=== PATIENT | female | born 1980 | race Caucasian/White ===

== ENCOUNTER 2022-06-03 10:23 | Outpatient (CLI) | payer OTHER, SELFPAY | END 2022-06-03 10:24 | disposition home or self-care (01) | PROVIDERS: PCP Physician Assistant Medical; Visit Provider Physician Assistant Medical | DX: E03.9 Hypothyroidism, unspecified (principal); E66.9 Obesity, unspecified; K58.9 Irritable bowel syndrome, unspecified; R53.83 Other fatigue | CPT/HCPCS: 82533; 82670; 84443 ==

== ENCOUNTER 2022-08-17 13:40 | Outpatient (CLI) | payer OTHER, SELFPAY ==
[2022-08-17 22:23] LABS: Iron* 67 ug/dL (37-170)
[2022-08-17 22:30] LABS: Free T4 Free Thyroxine* 1.35 ng/dL (0.70-1.85)
[2022-08-17 22:33] LABS: Percent Iron Saturation 15 % (20-50); Total Iron Binding Capacity 450 ug/dL (265-497)
[2022-08-19 19:48] LABS: Free T3 2.5 pg/mL (2.5-4.3)
[2022-08-19 19:57] LABS: TSH Receptor Antibody < 0.80 IU/L (<=1.75)
== END 2022-08-17 13:41 | disposition home or self-care (01) ==
PROVIDERS: PCP Physician Assistant Medical; Visit Provider Physician Assistant Medical
DX: E03.9 Hypothyroidism, unspecified (principal)
CPT/HCPCS: 83520; 83540; 83550; 84439; 84443; 84481

== ENCOUNTER 2022-12-21 15:15 | Outpatient (CLI) | payer OTHER, SELFPAY | END 2022-12-21 15:16 | disposition home or self-care (01) | LOC: LKVREF 16:14 | PROVIDERS: PCP Physician Assistant Medical; Visit Provider Physician Assistant Medical | DX: E03.9 Hypothyroidism, unspecified (principal) | CPT/HCPCS: 84443 ==

== ENCOUNTER 2023-09-27 07:52 | Outpatient (CLI) | payer OTHER, SELFPAY ==
--- OUTSIDE RECORDS SUMMARY | 2023-09-30 11:31 | XMS_ITS | Patient Health Record ---
Author Name Unknown Organization [facility] Address [address] [place], [place] [address] Care Team Providers Care Chamber Worker Name Role Phone FedericaJesica skinner Primary Care Provider Avi Botello Unavailable [phone] ALLERGIES Allergen (clinical drug ingredient) Drug/Non Drug Allergy documented on EMR Reaction Allergy Type Onset Date Status sulfamethoxazole / trimethoprim Bactrim DS Unknown Drug Allergy Active Substance with sulfonamide structure and antibacterial mechanism of action (substance) Sulfa Antibiotics Unknown Drug Allergy A ctive RESULTS Component Value Reference Range Notes TESTOSTERONE, TOTAL, LC/MS/M S Reviewed date:12/22/2022 09:31:28 AM Interpretation: Performing Lab:[facility] [address], [address] Center[facility]magpyulxmMT[address] Liam Law MD Notes/Report: 0 TESTOSTERONE, TOTAL, MS 120 2-45 ng/dL For additional information, please refer to https://education.nanoMR.com/faq/TotalTestosteroneLCMS MS (This link is being provided for informational/educational purposes only.) (Note) This test was developed and its analytical performance characteristics have been determined by [employer] It has not been cleared or approved by the FDA. This assay has been validated pursuant to the CLIA regulations and is used for clinical purposes. [facility] [address] [address],[address] [facility] [address] Liam Law MD REASON FOR REFERRAL No Information MEDICATIONS Medication SIG (Take, Route, Frequency, Duration) Notes Start Date End Date Status FLUoxetine HCl Not-T aking Wegovy Not-Taking Testosterone 5mg/day transdermal cream Active Losartan Potassium A ctive hydroCHLOROthiazide Active Levothyroxine Sodium Active Vyvanse Active Progesterone 100 MG TAKE 1 CAPSULE BY MOUTH EVERY DAY AT BEDTIME 30 for 90 Active Lisinopril Active SOCIAL HISTORY Tobacco Use: Social History Observation Description Date Details (start date - stop date) Never Smoker NA - NA Sex Assigned At : Social History Observation Description Sex Assigned At Unknown Tobacco Use/Smoking Question Answer Notes Are you a nonsmoker Alcohol Screen (Audit-C) Question Answer Notes Did you have a drink containing alcohol in the p ast year? No Points 0 Interpretation Negative PROBLEMS Problem Type ICD Code Onset Dates Problem Status W/U Status Risk SNOMED Code Notes Problem Other specified hypothyroidism (E03.8) Active confirmed 652683681 Problem Autoimmune thyroiditis (E06.3) Active confirmed 50198097 Problem Menopausal and female climacteric states (N95.1) Active confirmed Menopause (325448185) Problem Sleep difficulties (G47.9) Active confirmed 337032294 Problem Perimenopausal disorder (N95.9) Active confirmed 018948715 Problem 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 957604612 Encounters Encounter Location Date Provider Diagnosis [facility] [address] [place] [address] 11/12/2022 Avi Castle Menopausal and femal e climacteric states N95.1 [facility] [address] [place] [address] 12/16/2022 Avi Castle Menopausal and femal e climacteric states N95.1 [facility] [address] [place] [address] 11/19/2022 Avi Castle Perimenopausal disorder N95.9 ; Female climacteric N95.1 ; Fatigue R53.83 ; Other specified hypothyroidism E03.8 and Sleep difficulties G47.9 [facility] [address] [place] [address] 12/24/2022 Avi Castle Perimenopausal disorder N95.9 ; Female climacteric N95.1 ; Fatigue R53.83 and Other specified hypothyroidism E03.8 [facility] [address] [place] [address] 10/26/2022 Avi Castle [facility] [address] [place], [place] [address] 11/12/2022 Avi Castle ASSESSMENTS Encounter Date Diagnosis Assessment Notes Treatment Notes Treatment Clinical Notes 11/19/2022 Perimenopausal disorder (ICD-10 - N95.9) 11/19/2022 Female climacteric (ICD-10 - N95.1) 12/24/2022 Perimenopausal disorder (ICD-10 - N95.9) HRT labs reviewed. Optimal testosterone level on transdermal testotserone cream. Reporting improvement in baseline symptoms without concerns Plan to continue transdermal testosterone cream 5mg/day. Will change concentration to 1 click (0.25mg/day) so she doesn't have to use as much cream for 3 month supply with 1 refill to [facility] Repeat total testosterone lab in 6 months with Televisit 1 week after Due for updated mammogram in 03/202312/24/2022 Female climacteric (ICD-10 - N95.1) 12/24/2022 Fatigue (ICD-10 - R53.83) 12/16/2022 Menopausal and female climacteric states (ICD-10 - N95.1) 11/19/2022 Fatigue (ICD-10 - R53.83) 11/12/2022 Menopausal and female climacteric states (ICD-10 - N95.1) 11/19/2022 Other specified hypothyroidism (ICD-10 - E03.8) 12/24/2022 Other specified hypothyroidism (ICD-10 - E03.8) 11/19/2022 Sleep difficulties (ICD-10 - G47.9) 11/19/2022 Other HRT labs ordered. Plan to check total testosterone in 4 weeks with televisit in 5 weeks since she has not been using therapy consistently HRT without concerns at this time. Desires to continue on current therapies without dose adjustments 12 min. spent reviewing previous notes, lab results, therapies, answering questions/concerns, and discussing ongiong therapy options, along with time spent documenting today's visit note. 12/24/2022 Other This visit was conducted with the use of audio and video telecommunications system that permits real time communication between the patient and provider. Patient consent for virtual visit was obtained. Originating site: [facility] location Distant site: pt home Start time: 948 Stop time: 953 PLAN OF TREATMENT Pending Test Test Name Order Date TESTOSTERONE, TOTAL, LC/MS/MS 11/12/2022 Insurance Providers Payer Name Payer Address Payer Phone Subscriber Number Group Number Insured Name Patient Relationship to Insured Coverage Start Date Coverage End Date Preferred One HMO [address] [address] [place] [id number] Daily Rodriguez Self - patient is the insured 2 [facility] [address] [place] [id number] RawPatti nevareza Self - patient is the insured MEDICAL (GENERAL) HISTORY Medical History History ICD Code high blood pressure ADD Javier/ Hypothyroid sleep apnea Surgical History Surgery Date(Month/Year) gallbladder kidney stone removal s
== END 2023-09-27 07:53 | disposition home or self-care (01) ==
LOC: NFLDREF 09-30 11:27
PROVIDERS: PCP Physician Assistant Medical; Referring Provider Physician Assistant Medical; Visit Provider Physician Assistant Medical
DX: I10 Essential (primary) hypertension (principal)
CPT/HCPCS: 80053; 84443

== ENCOUNTER 2023-11-10 16:21 | Outpatient (CLI) | payer OTHER, SELFPAY | END 2023-11-10 16:22 | disposition home or self-care (01) | LOC: LKVREF 16:22 | PROVIDERS: PCP Physician Assistant Medical; Visit Provider Physician Assistant Medical | DX: Z01.818 Encounter for other preprocedural examination (principal); E03.9 Hypothyroidism, unspecified; I10 Essential (primary) hypertension; D64.9 Anemia, unspecified; E66.9 Obesity, unspecified; R74.01 Elevation of levels of liver transaminase levels | CPT/HCPCS: 84439; 84443 ==

== ENCOUNTER 2023-11-11 14:55 | Outpatient (CLI) | payer OTHER, SELFPAY ==
--- NOTE | 2023-11-11 16:00 | CRLHL7_ITS ---
For Patients: As a result of the Cures Act, medical imaging exams and procedure reports are released immediately into your electronic medical record. You may view this report before your referring provider. If you have questions, please contact your health care provider. INDICATION: LOCALIZED SWELLING, MASS, AND LUMP COMPARISON: 03/03/2022 TECHNIQUE: Turcios scale and color Doppler images were acquired of the thyroid gland. FINDINGS: The thyroid gland demonstrates diffusely heterogeneous echogenicity and has a lobular outer contour. The right lobe measures 8.4 x 3.2 x 4.8 cm and the left lobe measures 10.7 x 3.8 x 4.0 cm in size. The isthmus measures 15 millimeters. There are no suspicious masses or nodules. The color Doppler images demonstrate increased vascularity. There is no evidence of cervical lymphadenopathy or parathyroid mass. IMPRESSION: Diffusely enlarged, hypervascular and heterogeneous thyroid gland without dominant or suspicious nodule. Dictated by Naif Dennis MD @ 11/12/2023 10:24:09 AM (Electronically Signed)
== END 2023-11-11 14:56 | disposition home or self-care (01) ==
LOC: US 14:56
PROVIDERS: PCP Physician Assistant Medical; Visit Provider Otolaryngology
DX: R22.1 Localized swelling, mass and lump, neck (principal); E04.9 Nontoxic goiter, unspecified
CPT/HCPCS: 76536

== ENCOUNTER 2024-03-09 12:19 | Outpatient (CLI) | payer OTHER, SELFPAY ==
--- OUTSIDE RECORDS SUMMARY | 2024-03-09 12:25 | XMS_ITS | Clinical Summary ---
Author Name Unknown Organization [employer] [facility] Address [place], [place] [address] Care Team Providers Care Multi Media Specialist Name Role Phone Phil Spangler Primary Care Provider +1 [phone] Allergies Active Allergy Reactions Criticality Noted Date Comments Sulfamethoxazole-Trimeth oprim Other - Describe In Comment Field 09/01/2010 Hands peel Medications Medication Sig Dispensed Refills Start Date End Date Status azithromycin (ZITHROMAX) 250 mg tablet Take 500 mg (2 tabs) by mouth on day 1, then 250 mg (1 tab) daily for days 2-5. 6 tablet 0 09/15/2010 Active Social History Tobacco Use Types Packs/Day Years Used Date Smoking Tobacco: Never Sex and Gender Information Value Date Recorded Sex Assigned at Not on file Gender Identity Not on file Sexual Orientation Not on file Obstetrics History Last Filed Vital Signs Vital Sign Reading Time Taken Comments Blood Pressure 134/82 09/01/2010 7:32 PM CDT Pulse - - Temperature 37.2 ??C (99 ??F) 09/01/2010 7:32 PM CDT Respiratory Rate - - Oxygen Saturation - - Inhaled Oxygen Concentration - - Weight 114.8 kg (253 lb) 09/01/2010 7:32 PM CDT Height - - Body Mass Index - - Plan of Treatment Health Maintenance Due Date Last Done Comments Tdap 1993 Depression screening for age 12+ 1994 HIV for age 15-65 1997 BMI (ht and wt on same day) for age 18+ 02/04/2000 Hepatitis C screening for age 18-79 02/04/2000 Tetanus booster 2002 COVID-19 vaccine series (2022-24 season) 2023 08/20/2022, 09/23/2021, 01/15/2021, Additional history exists Pap test for age 21-65 07/28/2024 , 07/28/2021, 02/07/2018, Additional history exists Influenza for age 9-49 07/30/2024 Pneumococcal series for age 6-64 Aged Out No longer eligible based on patient's age to complete this topic Procedures Procedure Name Priority Date/Time Associated Diagnosis Comments HPV THIN PREP Routine 07/28/2021 5:30 PM CDT from Last 3 Months or Most Recently Relevant to Health Maintenance Results * HPV HIGH RISK (07/28/2021 5:30 PM CDT) TYPE 16 Negative Negative 08/01/2021 1:59 PM CDT [facility] TYPE 18 Negative Negative 08/01/2021 1:59 PM CDT [facility] TRA LABORATORY OTHER HIGH RISK TYPES Negative Negative 08/01/2021 1:59 PM CDT [facility] Other (Cervical/Vagina l) 07/28/2021 5:30 PM CDT 07/30/2021 11:25 AM CDT Narrative [facility] - 08/01/2021 1:59 PM CDT HPV types 16, 18, 31, 33, 35, 39, 45, 51, 52, 56, 58, 59, 66 and 68 DNA were undetectable or below the pre-set threshold. Methodology: Bill Payton 4800 HPV Test Jesica Mcdonald PA-C [facility] [address] [place] [address], [place] from Last 3 Months or Most Recently Relevant to Health Maintenance Care Teams Multi Media Specialist Relationship Specialty [place] [address] [place], [place] [id number] PCP - General 09/01/10
--- OUTSIDE RECORDS SUMMARY | 2024-03-09 12:25 | XMS_ITS | Clinical Summary ---
Author Name Unknown Organization [facility] Address [address] [place] [address] Care Team Providers Care Supervisor Microwave Name Role Phone Harry Natiman De PA-C Primary Care Provider Allergies Active Allergy Reactions Criticality Noted Date Comments Sulfamethoxazole-Trimethopri m Other (See Comments) 09/01/2010 Hands peel Medications Medication Sig Dispensed Refills Start Date End Date Status lisdexamfetamine (VYVANSE) 60 MG capsule Take 60 mg by mouth every morning Active levothyroxine (SYNTHROID/LEVOTHROID ) 112 MCG tablet Take 112 mcg by mouth 2 times daily Active albuterol (PROAIR HFA/PROVENTIL HFA/VENTOLIN HFA) 108 (90 Base) MCG/ACT inhaler Inhale 2 puffs into the lungs every 6 hours as needed for shortness of breath, wheezing or cough Active hydrochlorothiazide (HYDRODIURIL) 25 MG tablet Take 25 mg by mouth daily Active losartan (COZAAR) 50 MG tablet Take 50 mg by mouth daily Active Immunizations Name Administration Dates Next Due Influenza Vaccine >6 months,FRANK mary 08/26/2016 Social History Tobacco Use Types Packs/Day Years Used Date Smoking Tobacco: Never Smokeless Tobacco: Never Tobacco Cessation:Counseling Given: Not Answered Alcohol Use Standard Drinks/Week Comments Yes 0 (1 standard drink = 0.6 oz pur e alcohol) occ. Adolescent Education Answer Date Record ed Getting School Help Needed Not on file 11/04 Sex and Gender Information Value Date Recorded Sex Assigned at Not on file Gender Identity Not on file Sexual Orientation Not on file Last Filed Vital Signs Vital Sign Reading Time Taken Comments Blood Pressure 112/80 11/15/2023 11:35 AM KILN CLEANER Pulse 65 11/15/2023 11:35 AM KILN CLEANER Temperature 36.1 ??C (97 ??F) 11/15/2023 10:55 AM KILN CLEANER Respiratory Rate 16 11/15/2023 10:55 AM KILN CLEANER Oxygen Saturation 98% 11/15/2023 11:35 AM KILN CLEANER Inhaled Oxygen Concentration - - Weight 154.4 kg (340 lb 8 oz) 11/15/2023 8:31 AM KILN CLEANER Height 172.7 cm (5' 8) 11/12/2023 3:00 PM KILN CLEANER Body Mass Index 51.77 11/12/2023 3:00 PM KILN CLEANER Plan of Treatment Health Maintenance Due Date Last Done Comments ADVANCE CARE PLANNING 1982 ANNUAL REVIEW OF HM ORDERS 1982 MAMMO SCREENING 1982 TSH W/FREE T4 REFLEX 1982 YEARLY PREVENTIVE VISIT 1982 DTAP/TDAP/TD IMMUNIZATION (6 - Tdap) 07/17/1995 07/16/1995, 07/02/1987, 03/04/1984, Additional history exists HIV SCREENING 1997 HEPATITIS C SCREENING 02/04/2000 PAP 2003 GLUCOSE 11/27/2009 11/27/2006, 092 , 07/31/2006 LIPID 2022 PHQ-2 (once per calendar year) 2023 IPV IMMUNIZATION Completed 07/02/1987, 04/1984, 1982, Additional history exists HEPATITIS B IMMUNIZATION Completed 994, 06/18/1994, 05/18/1994 COVID-19 Vaccine Completed 09/11/2023, , 09/23/2021, Additional history exists INFLUENZA VACCINE Completed 09/11/2023, , 09/23/2021, Additional history exists HPV IMMUNIZATION Aged Out No longer e ligible based on patient's age to complete this topic MENINGITIS IMMUNIZATION Aged Out No l onger eligible based on patient's age to complete this topic Pneumococcal Vaccine: Pediatrics (0 to 5 Years) and At-Risk Patients (6 to 64 Years) Aged Out No longer eligible based on patient's age to complete this topic RSV MONOCLONAL ANTIBODY Aged Out No l onger eligible based on patient's age to complete this topic Procedures Procedure Name Priority Date/Time Associated Diagnosis Comments BASIC METABOLIC PANEL Timed 11/27/2006 12:55 PM KILN CLEANER from Last 3 Months or Most Recently Relevant to Health Maintenance Results * (ABNORMAL) Basic metabolic panel (11/27/2006 12:55 PM KILN CLEANER) Sodium 135 133 - 144 mmol/L [facility] Potassium 3.8 3.4 - 5.3 mmol/L [facility] Chloride 107 94 - 109 mmol/L [facility] Carbon Dioxide 25 20 - 32 mmol/L [facility] Glucose 76 60 - 110 mg/dL [facility] Urea Nitrogen 5 5 - 24 mg/dL [facility] Creatinine 0.45(L) 0.60 - 1.30 mg/dL [facility] GFR Estimate >90 >60 mL/min/1. 7m2 [facility] GFR Estimate If Black >90 >60 mL/min/1. 7m2 [facility] Comment: Stages of Chronic Kidney Disease Stage 1: ??GFR 90 or greater and other evidence of kidney damage* Stage 2: ??GFR 60-89 and other evidence of kidney damage * Stage 3: ??GFR 30-59 Stage 4: ??GFR 15-29 Stage 5: ??GFR less than 15 or dialysis *Chronic kidney disease is defined as kidney damage or GFR less than 60 mL/min/1.73 m2 for three months or greater. ??Kidney damage is defined as pathologic abnormalities or markers or damage, including abnormalities in blood or urine tests or imaging studies. Calcium 8.2(L) 8.5 - 10.4 mg/dL [facility] Anion Gap 4(L) 6 - 17 mmol/L [facility] 11/27/2006 12:5 5 PM KILN CLEANER 11/27/2006 1:00 PM KILN CLEANER Juice Knapp MD LAB - BLOOD ORDERABL ES [facility] from Last 3 Months or Most Recently Relevant to Health Maintenance Care Teams Supervisor Microwave Relationship Specialty Start Date End Date Jesica Mcdonald PA-C [facility] [address] [place] [address] PCP - General Physician Program Director/Music Director 11/15/23
--- OUTSIDE RECORDS SUMMARY | 2024-03-09 12:25 | XMS_ITS | Referral Summary ---
Author Name Unknown Organization [facility] Address [address] [place] [address] Care Team Providers Care Drill Rig Operator Name Role Phone Jesica Mcdonald PA-C Primary Care Provider Allergies Active Allergy [...] Comments Blood Pressure 112/80 11/15/2023 11:35 AM BATTERY CONTAINER FINISHING HAND Pulse 65 11/15/2023 11:35 AM BATTERY CONTAINER FINISHING HAND Temperature 36.1 ??C (97 ??F) 11/15/2023 10:55 AM BATTERY CONTAINER FINISHING HAND Respiratory Rate 16 11/15/2023 10:55 AM BATTERY CONTAINER FINISHING HAND Oxygen Saturation 98% 11/15/2023 11:35 AM BATTERY CONTAINER FINISHING HAND Inhaled Oxygen Concentration - - Weight 154.4 kg (340 lb 8 oz) 11/15/2023 8:31 AM BATTERY CONTAINER FINISHING HAND Height 172.7 cm (5' 8) 11/12/2023 3:00 PM BATTERY CONTAINER FINISHING HAND Body Mass Index 51.77 11/12/2023 3:00 PM BATTERY CONTAINER FINISHING HAND Plan of Treatment Not on file Procedures Procedure Name Priority Date/Time Associated Diagnosis Comments BASIC METABOLIC PANEL Timed 11/27/2006 12:55 PM BATTERY CONTAINER FINISHING HAND from Last 3 Months or Most Recently Relevant to Health Maintenance Results * (ABNORMAL) Basic metabolic panel (11/27/2006 12:55 PM BATTERY CONTAINER FINISHING HAND) Sodium 135 133 - 144 mmol/L MISYS [...] 17 mmol/L [facility]ISYS 11/27/2006 12:5 5 PM BATTERY CONTAINER FINISHING HAND 11/27/2006 1:00 PM BATTERY CONTAINER FINISHING HAND Juice Knapp MD LAB - BLOOD ORDERABL ES MISYS from Last 3 Months or Most Recently Relevant to Health Maintenance Care Teams Drill Rig Operator Relationship Specialty Start Date End Date Jesica Mcdonald PA-C [facility] [address] [place] [address] PCP - General Physician Election Watcher 11/15/23
== END 2024-03-09 12:20 | disposition home or self-care (01) ==
PROVIDERS: PCP Physician Assistant Medical; Visit Provider Physician Assistant Medical
DX: D64.9 Anemia, unspecified (principal); E03.9 Hypothyroidism, unspecified
CPT/HCPCS: 80076; 84439; 84443; 84481; 86376

== ENCOUNTER 2024-06-12 12:41 | Outpatient (CLI) | payer BC, OTHER, SELFPAY ==
--- OUTSIDE RECORDS SUMMARY | 2024-06-12 12:48 | XMS_ITS | Patient Health Record ---
Author Organization [facility] Address [address] [place], [place] [address] Care Team Providers Care Fixed Route Operator Name Role Phone Jesica Mcdonald Primary Care Provider Avi Botello [phone] Allergies Allergen (clinical drug ingredient) Drug/Non Drug Allergy documented on EMR Reaction Allergy Type Onset Date Status sulfamethoxazole / trimethoprim Bactrim DS Unknown Drug Allergy Active Substance with sulfonamide structure and antibacterial mechanism of action (substance) Sulfa Antibiotics Unknown Drug Allergy A ctive Reason For Referral No Information Medications Medication SIG (Take, Route, Frequency, Duration) Notes Start Date End Date Status FLUoxetine HCl Not-T aking Wegovy Not-Taking Testosterone 5mg/day transdermal cream Active Losartan Potassium A ctive hydroCHLOROthiazide Active Levothyroxine Sodium Active Vyvanse Active Progesterone 100 MG TAKE 1 CAPSULE BY MOUTH EVERY DAY AT BEDTIME 30 for 90 Active Lisinopril Active Social History Tobacco Use: Social History Observation Description Date Details (start date - stop date) Never Smoker NA - NA Tobacco Use/Smoking Question Answer Notes Are you a nonsmoker Alcohol Screen (Audit-C) Question Answer Notes Did you have a drink containing alcohol in the p ast year? No Points 0 Interpretation Negative Problems Problem Type SNOMED Code ICD Code Onset Dates Problem Status W/U Status Risk Notes Problem [id number] Other specified hypothyroidism (E03.8) Active confirmed Problem 73895236 Autoimmune thyroiditis (E06.3) Active confirmed Problem Menopause (682572546) Menopausal and female climacteric states (N95.1) Active confirmed Problem 711467933 Sleep difficulti es (G47.9) Active confirmed Problem 586398412 Perimenopausal disorder (N95.9) Active confirmed Problem 576357134 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 Plan Of Treatment No Information Insurance Providers Payer Name Payer Address Payer Phone Subscriber Number Group Number Insured Name Patient Relationship to Insured Coverage Start Date Coverage End Date Preferred One HMO [address] [address] [place] [id number] DennisPatti nevareza Self - patient is the insured 2 [facility] [address] [place] [id number] RawDaily nevarez Self - patient is the insured Medical (General) History Medical History History ICD Code high blood pressure ADD Javier/ Hypothyroid sleep apnea Surgical History Surgery Date(Month/Year) gallbladder kidney stone removal s
--- OUTSIDE RECORDS SUMMARY | 2024-06-12 12:48 | XMS_ITS | Clinical Summary ---
Author Organization [facility] Address [address] [place] [address] Care Team Providers Care Reverse Unit Operator Fisherman Name Role Phone Jesica Mcdonald PA-C Primary [...] Administration Dates Next Due Influenza Vaccine >6 months,usman PF 08/26/2016 Social History Tobacco Use Types Packs/Day [...] Comments Blood Pressure 112/80 11/15/2023 11:35 AM LIBRARY AIDE Pulse 65 11/15/2023 11:35 AM LIBRARY AIDE Temperature 36.1 ??C (97 ??F) 11/15/2023 10:55 AM LIBRARY AIDE Respiratory Rate 16 11/15/2023 10:55 AM LIBRARY AIDE Oxygen Saturation 98% 11/15/2023 11:35 AM LIBRARY AIDE Inhaled Oxygen Concentration - - Weight 154.4 kg (340 lb 8 oz) 11/15/2023 8:31 AM LIBRARY AIDE Height 172.7 cm (5' 8) 11/12/2023 3:00 PM LIBRARY AIDE Body Mass Index 51.77 11/12/2023 3:00 PM LIBRARY AIDE Plan of Treatment Health Maintenance Due Date Last Done Comments ADVANCE CARE PLANNING 1982 ANNUAL REVIEW OF HM ORDERS 1982 MAMMO SCREENING 1982 TSH W/FREE T4 REFLEX 1982 YEARLY PREVENTIVE VISIT 1982 DTAP/TDAP/TD IMMUNIZATION (6 - Tdap) 07/17/1995 07/16/1995, 07/02/1987, 03/04/1984, Additional history exists HIV SCREENING 1997 HEPATITIS C SCREENING 02/04/2000 PAP 2003 LIPID 2022 PHQ-2 (once per calendar year) 2023 INFLUENZA VACCINE (#1) 2024 , 08/19/2022, 09/23/2021, Additional history exists GLUCOSE 11/10/2026 11/10/2023, 10/31, 08/18/2006, Additional history exists IPV IMMUNIZATION Completed 07/02/1987, 04/1984, 1982, Additional [...] Procedure Name Priority Date/Time Associated Diagnosis Comments GLUCOSE (EXTERNAL RESULT) Routine 11/10/2023 5:06 PM LIBRARY AIDE from Last 3 Months or Most Recently Relevant to Health Maintenance Results * Glucose (External Result) (11/10/2023 5:06 PM LIBRARY AIDE) Glucose (External) 88 60 - 116 mg/dL [facility] Blood 11/10/2023 5:06 PM LIBRARY AIDE Narrative [facility] - 11/10/2023 5:06 PM LIBRARY AIDE [facility] External Lab Results Provider Outside LAB - HIM EXTERNAL R ESULT [facility] [address] [place] [address], [facility] [phone] from Last 3 Months or Most Recently Relevant to Health Maintenance Care Teams Reverse Unit Operator Fisherman Relationship Specialty Start Date End Date Jesica Mcdonald PA-C [facility] [address] [place] [address] PCP - General Physician Gas Engine Operator Compressors 11/15/23
--- OUTSIDE RECORDS SUMMARY | 2024-06-12 12:48 | XMS_ITS | Clinical Summary ---
Author Organization [facility] Address [place], [place] [address] Care Team Providers Care Clay Thrower Name Role Phone Phil Spangler Primary Care Provider +1 [phone] Allergies Active Allergy Reactions Criticality Noted Date [...] 16 Negative Negative 08/01/2021 1:59 PM CDT [facility] TYPE 18 Negative Negative 08/01/2021 1:59 PM CDT [facility] OTHER HIGH RISK TYPES Negative Negative 08/01/2021 1:59 PM CDT [facility] Other (Cervical/Vagina l) 07/28/2021 5:30 PM CDT 07/30/2021 11:25 AM CDT Narrative [facility] - 08/01/2021 1:59 PM CDT HPV types 16, 18, 31, 33, 35, 39, 45, 51, 52, 56, 58, 59, 66 and 68 DNA were undetectable or below the pre-set threshold. Methodology: Bill Payton 4800 HPV Test Jesica Mcdonald PA-C MICROBIOLOGY [facility] [facility] [address] [place] [address], [place] from Last 3 Months or Most Recently Relevant to Health Maintenance Care Teams Clay Thrower Relationship Specialty Start [place] [address] [address] [place], [place] [id number] PCP - General 09/01/10
--- OUTSIDE RECORDS SUMMARY | 2024-06-12 12:48 | XMS_ITS | Referral Summary ---
Author Organization [facility] Address [address] [place] [address] Care Team Providers Care Steam Tank Operator Name Role Phone Jesica Mcdonald PA-C [...] Administration Dates Next Due Influenza Vaccine >6 months,[place], PF 08/26/2016 Social History Tobacco Use Types [...] Comments Blood Pressure 112/80 11/15/2023 11:35 AM POWERPLANT OPERATOR Pulse 65 11/15/2023 11:35 AM POWERPLANT OPERATOR Temperature 36.1 ??C (97 ??F) 11/15/2023 10:55 AM POWERPLANT OPERATOR Respiratory Rate 16 11/15/2023 10:55 AM POWERPLANT OPERATOR Oxygen Saturation 98% 11/15/2023 11:35 AM POWERPLANT OPERATOR Inhaled Oxygen Concentration - - Weight 154.4 kg (340 lb 8 oz) 11/15/2023 8:31 AM POWERPLANT OPERATOR Height 172.7 cm (5' 8) 11/12/2023 3:00 PM POWERPLANT OPERATOR Body Mass Index 51.77 11/12/2023 3:00 PM POWERPLANT OPERATOR Plan of Treatment Not on file Procedures Procedure Name Priority Date/Time Associated Diagnosis Comments GLUCOSE (EXTERNAL RESULT) Routine 11/10/2023 5:06 PM POWERPLANT OPERATOR from Last 3 Months or Most Recently Relevant to Health Maintenance Results * Glucose (External Result) (11/10/2023 5:06 PM POWERPLANT OPERATOR) Glucose (External) 88 60 - 116 mg/dL [facility] Blood 11/10/2023 5:06 PM POWERPLANT OPERATOR Narrative [facility] - 11/10/2023 5:06 PM POWERPLANT OPERATOR [facility] External Lab Results Provider Outside LAB - HIM EXTERNAL R ESULT [facility] [address] [place] [address], [facility] [phone] from Last 3 Months or Most Recently Relevant to Health Maintenance Care Teams Steam Tank Operator Relationship Specialty Start Date End Date Jesica Mcdonald PA-C [facility] [address] [place] [address] PCP - General Physician Personnel Assistant 11/15/23
--- NOTE | 2024-06-12 13:00 | CRLHL7_ITS ---
For Patients: As a result of the Century Cures Act, medical imaging exams and procedure reports are released immediately into your electronic medical record. You may view this report before your referring provider. If you have questions, please contact your health care provider. BILATERAL SCREENING MAMMOGRAM WITH COMPUTER-AIDED DETECTION AND TOMOSYNTHESIS TECHNIQUE: CC and MLO views were obtained. These mammographic images have been obtained using full-field digital technique. These mammographic images were interpreted with the benefit of computer-aided detection. Breast tomosynthesis was used in this interpretation. COMPARISON FILM: 04/02/22. FINDINGS: There are scattered areas of fibroglandular density. IMPRESSION: There is no radiographic evidence for malignancy. ASSESSMENT: BI-RADS Category 1: Negative RECOMMENDATION: Routine screening mammogram in 1 year. A lay language report of this examination will be provided to the patient. NAIF HAQ M.D. Diagnostic Radiologist [email or web address] Transcribed: 3:[address]/Dictated by: Naif Haq MD @ 06/13/2024 8:33:00 AM (Electronically Signed)
== END 2024-06-12 12:42 | disposition home or self-care (01) ==
LOC: MAMMO 12:43
PROVIDERS: PCP Physician Assistant Medical; Visit Provider Physician Assistant Medical
DX: Z12.31 Encounter for screening mammogram for malignant neoplasm of breast (principal)
CPT/HCPCS: 77063; 77067

== ENCOUNTER 2024-08-30 16:21 | Outpatient (CLI) | payer BC, OTHER, SELFPAY ==
--- OUTSIDE RECORDS SUMMARY | 2024-08-31 08:32 | XMS_ITS | Clinical Summary ---
Author Organization [facility] Address [address] [place] [address] Care Team Providers Care Trauma Manager Name Role Phone Jesica Mcdonald PA-C Primary [...] Comments Blood Pressure 112/80 11/15/2023 11:35 AM HEAT TREAT TECHNICIAN Pulse 65 11/15/2023 11:35 AM HEAT TREAT TECHNICIAN Temperature 36.1 ??C (97 ??F) 11/15/2023 10:55 AM HEAT TREAT TECHNICIAN Respiratory Rate 16 11/15/2023 10:55 AM HEAT TREAT TECHNICIAN Oxygen Saturation 98% 11/15/2023 11:35 AM HEAT TREAT TECHNICIAN Inhaled Oxygen Concentration - - Weight 154.4 kg (340 lb 8 oz) 11/15/2023 8:31 AM HEAT TREAT TECHNICIAN Height 172.7 cm (5' 8) 11/12/2023 3:00 PM HEAT TREAT TECHNICIAN Body Mass Index 51.77 11/12/2023 3:00 PM HEAT TREAT TECHNICIAN Plan of Treatment Health Maintenance Due Date Last Done Comments ADVANCE CARE PLANNING 1982 ANNUAL REVIEW OF HM ORDERS 1982 MAMMO SCREENING 1982 TSH W/FREE T4 REFLEX 1982 YEARLY PREVENTIVE VISIT 1982 DTAP/TDAP/TD IMMUNIZATION (6 - Tdap) 07/17/1995 07/16/1995, 07/02/1987, 03/04/1984, Additional history exists HIV SCREENING 1997 HEPATITIS C SCREENING 02/04/2000 PAP 2003 LIPID 2022 PHQ-2 (once per calendar year) 2023 COVID-19 Vaccine ( season) 2024 09/11/2023, 08/20/2022, 09/23/2021, Additional history exists INFLUENZA VACCINE (#1) 2024 , 08/19/2022, 09/23/2021, Additional history exists GLUCOSE 11/10/2026 11/10/2023, 10/31, 08/18/2006, Additional history exists HEPATITIS B IMMUNIZATION Completed 994, 06/18/1994, 05/18/1994 HPV IMMUNIZATION Aged Out No longer e [...] GLUCOSE (EXTERNAL RESULT) Routine 11/10/2023 5:06 PM HEAT TREAT TECHNICIAN from Last 3 Months or Most Recently Relevant to Health Maintenance Results * Glucose (External Result) (11/10/2023 5:06 PM HEAT TREAT TECHNICIAN) Glucose (External) 88 60 - 116 mg/dL [facility] Blood 11/10/2023 5:06 PM HEAT TREAT TECHNICIAN Narrative [facility] - 11/10/2023 5:06 PM HEAT TREAT TECHNICIAN [facility] External Lab Results Provider Outside LAB - HIM EXTERNAL R ESULT [facility] [address] [place] [address], [facility] [phone] from Last 3 Months or Most Recently Relevant to Health Maintenance Care Teams Trauma Manager Relationship Specialty Start Date End Date Jesica Mcdonald PA-C [facility] [address] [place] [address] PCP - General Physician Supervisor Fishing 11/15/23
--- OUTSIDE RECORDS SUMMARY | 2024-08-31 08:32 | XMS_ITS | Clinical Summary ---
Author Organization [facility] Address [place], [place] [address] Care Team Providers Care Supervisor Ore Dressing Name Role Phone Phil Spangler Primary Care Provider [phone] Allergies Active Allergy Reactions Criticality Noted Date [...] for age 18-79 02/04/2000 Tetanus booster 2002 Pap test for age 21-65 07/28/2024 , 07/28/2021, 02/07/2018, Additional history exists COVID-19 vaccine series ( season) 2024 08/20/2022, 09/23/2021, 01/15/2021, Additional history exists Influenza for age 9-49 07/30/2024 Pneumococcal series for age 6-64 Aged Out No longer eligible based on patient's age to complete this topic Procedures Procedure Name Priority Date/Time Associated Diagnosis Comments HPV HIGH RISK Routine 07/28/2021 5:30 PM CDT from Last 3 Months or Most Recently Relevant to Health Maintenance Results * HPV HIGH RISK (07/28/2021 5:30 PM CDT) TYPE 16 Negative Negative 08/01/2021 1:59 PM CDT [facility] TYPE 18 Negative Negative 08/01/2021 1:59 PM CDT [facility] OTHER HIGH RISK TYPES Negative Negative 08/01/2021 1:59 PM CDT [facility] Other (Cervical/Vagina l) 07/28/2021 5:30 PM CDT 07/30/2021 11:25 AM CDT Narrative [facility] - 08/01/2021 1:59 PM CDT HPV types 16, 18, 31, 33, 35, 39, 45, 51, 52, 56, 58, 59, 66 and 68 DNA were undetectable or below the pre-set threshold. Methodology: Bill Payton 4800 HPV Test Jesica Mcdonald PA-C MICROBIOLOGY [facility] [address] [place] [address], [place] from Last 3 Months or Most Recently Relevant to Health Maintenance Care Teams Supervisor Ore Dressing Relationship Specialty [place] [address] [address] [place], [place] [phone] PCP - General 09/01/10
--- OUTSIDE RECORDS SUMMARY | 2024-08-31 08:32 | XMS_ITS | Referral Summary ---
Author Organization [facility] Address [address] [place] [address] Care Team Providers Care Early Intervention Specialist Name Role Phone Jesica Mcdonald PA-C Primary [...] Comments Blood Pressure 112/80 11/15/2023 11:35 AM PRIMER POWDER BLENDER WET Pulse 65 11/15/2023 11:35 AM PRIMER POWDER BLENDER WET Temperature 36.1 ??C (97 ??F) 11/15/2023 10:55 AM PRIMER POWDER BLENDER WET Respiratory Rate 16 11/15/2023 10:55 AM PRIMER POWDER BLENDER WET Oxygen Saturation 98% 11/15/2023 11:35 AM PRIMER POWDER BLENDER WET Inhaled Oxygen Concentration - - Weight 154.4 kg (340 lb 8 oz) 11/15/2023 8:31 AM PRIMER POWDER BLENDER WET Height 172.7 cm (5' 8) 11/12/2023 3:00 PM PRIMER POWDER BLENDER WET Body Mass Index 51.77 11/12/2023 3:00 PM PRIMER POWDER BLENDER WET Plan of Treatment Not on file Procedures Procedure Name Priority Date/Time Associated Diagnosis Comments GLUCOSE (EXTERNAL RESULT) Routine 11/10/2023 5:06 PM PRIMER POWDER BLENDER WET from Last 3 Months or Most Recently Relevant to Health Maintenance Results * Glucose (External Result) (11/10/2023 5:06 PM PRIMER POWDER BLENDER WET) Glucose (External) 88 60 - 116 mg/dL [facility] Blood 11/10/2023 5:06 PM PRIMER POWDER BLENDER WET Narrative [facility] - 11/10/2023 5:06 PM PRIMER POWDER BLENDER WET [facility] External Lab Results Provider Outside LAB - HIM EXTERNAL R ESULT [facility] [address] [place] [address], [facility] [phone] from Last 3 Months or Most Recently Relevant to Health Maintenance Care Teams Early Intervention Specialist Relationship Specialty Start Date End Date Jesica Mcdonald PA-C [facility] [address] [place] [address] PCP - General Physician Unleavened Dough Mixer 11/15/23
--- OUTSIDE RECORDS SUMMARY | 2024-08-31 08:32 | XMS_ITS | Patient Health Record ---
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 Problem Menopause (194706372) Menopausal and female climacteric states (N95.1) Active confirmed Problem [id number] Sleep difficulti es (G47.9) Active confirmed Problem [id number] Perimenopausal disorder (N95.9) Active confirmed Problem 021062382 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 Plan Of Treatment No Information Insurance Providers Payer Name Payer Address Payer Phone Subscriber Number Group Number Insured Name Patient Relationship to Insured Coverage Start Date Coverage End Date [employer] [address] [address] [place] [id number] DennisPatti nevareza Self - patient is the insured 2 [facility] [address] [place]SE[place] Neely [id number] RawDaily nevarez Self - patient is the insured Medical (General) History Medical History History ICD Code high blood pressure ADD Javier/ Hypothyroid sleep apnea Surgical History Surgery Date(Month/Year) gallbladder kidney stone removal s
== END 2024-08-30 16:22 | disposition home or self-care (01) ==
LOC: NFLDREF 08-31 08:29
PROVIDERS: PCP Physician Assistant Medical; Referring Provider Physician Assistant Medical; Visit Provider Physician Assistant Medical
DX: Z00.00 Encounter for general adult medical examination without abnormal findings (principal); E03.9 Hypothyroidism, unspecified; I10 Essential (primary) hypertension; E66.01 Morbid (severe) obesity due to excess calories; R74.01 Elevation of levels of liver transaminase levels; D64.9 Anemia, unspecified; R10.9 Unspecified abdominal pain
CPT/HCPCS: 80061; 80076; 84443

== ENCOUNTER 2025-02-09 15:34 | Outpatient (CLI) | payer BC, OTHER, SELFPAY ==
--- NOTE | 2025-02-09 16:00 | CRLHL7_ITS ---
For Patients: As a result of the Century Cures Act, medical imaging exams and procedure reports are released immediately into your electronic medical record. You may view this report before your referring provider. If you have questions, please contact your health care provider. INDICATION: Hypothyroidism, Javier`s COMPARISON: 11/11/2023 TECHNIQUE: Turcios scale and color Doppler images were acquired of the thyroid gland. FINDINGS: The thyroid gland demonstrates diffusely heterogeneous echogenicity and has a lobular outer contour. The right lobe measures 8.4 x 2.1 x 3.6 cm and the left lobe measures 9.9 x 3.1 x 4.7 cm in size. Isthmus measures 1.3 cm. The color Doppler images demonstrate decreased vascularity. There is no evidence of cervical lymphadenopathy or parathyroid mass. IMPRESSION: Diffusely enlarged and heterogeneous thyroid gland with diminished vascularity. No thyroid nodule. No adenopathy. Dictated by Naif Dennis MD @ 02/11/2025 8:01:25 AM (Electronically Signed)
== END 2025-02-09 15:35 | disposition home or self-care (01) ==
LOC: US 15:35
PROVIDERS: PCP Physician Assistant Medical; Visit Provider Physician Assistant Medical
DX: E03.9 Hypothyroidism, unspecified (principal); E06.3 Autoimmune thyroiditis
CPT/HCPCS: 76536

== ENCOUNTER 2025-08-06 16:13 | Outpatient (CLI) | payer BC, OTHER, SELFPAY | END 2025-08-06 16:14 | disposition home or self-care (01) | PROVIDERS: PCP Physician Assistant Medical; Visit Provider Physician Assistant Medical | DX: N95.1 Menopausal and female climacteric states (principal); G47.9 Sleep disorder, unspecified | CPT/HCPCS: 80053; 82306; 82670; 83001; 84144; 84403; 84443 ==

== ENCOUNTER 2025-08-24 12:47 | Outpatient (CLI) | payer BC, OTHER, SELFPAY ==
--- NOTE | 2025-08-24 13:00 | CRLHL7_ITS ---
For Patients: As a result of the Century Cures Act, medical imaging exams and procedure reports are released immediately into your electronic medical record. You may view this report before your referring provider. If you have questions, please contact your health care provider. INDICATION: BILATERAL SCREENING MAMMOGRAM, ASYMPTOMATIC 45 Y/O FEMALE COMPARISON: 06/12/2024, 04/02/2022 TECHNIQUE: Digital mammogram in CC and MLO projections including computer-aided detection (CAD) and tomosynthesis. BREAST COMPOSITION: There are scattered areas of fibroglandular density. FINDINGS: No suspicious findings. ASSESSMENT: BI-RADS 1 Negative RECOMMENDATION: Annual screening mammogram. A lay language report of this examination will be provided to the patient. Dictated by: Naif Dennis MD @ 08/27/2025 08:48:40 (Electronically Signed)
== END 2025-08-24 12:48 | disposition home or self-care (01) ==
LOC: MAMMO 12:47
PROVIDERS: PCP Physician Assistant Medical; Visit Provider Physician Assistant Medical
DX: Z12.31 Encounter for screening mammogram for malignant neoplasm of breast (principal)
CPT/HCPCS: 77063; 77067